=== PATIENT | female | born 1990 | race Caucasian/White ===

== ENCOUNTER 2021-10-19 12:43 | Outpatient (CLI) | payer BC ==
[~2021-10-19 12:43] MED LIST: COLACE 100MG C100 MG PO
== END 2021-10-19 14:35 | disposition other institution (70) ==
LOC: GENOP 12:43
DX: O34.32 Maternal care for cervical incompetence, second trimester (principal); Z3A.22 22 weeks gestation of pregnancy
CPT/HCPCS: 76815; 96360; J7120